=== PATIENT | male | born 1975 | race Asian ===

== ENCOUNTER 2016-12-29 17:18 | Emergency (ER) | payer SELFPAY ==
[~2016-12-29] VITALS: Ht 175.3 cm; Wt 111.6 kg
[2016-12-29 17:34] VITALS: BP 145/82
[2016-12-29] MEDS ORDERED: TETANUS AND DIPHTHERIA TOX/PF 0.5 ML DISP.SYRIN. VAX IM ONE (17:45)
[2016-12-29] MEDS ORDERED: NEOMY/BACITR/POLYMYXIN OINT PACKET. TP ONE (18:00)
[2016-12-29] MEDS ORDERED: CEPH-264 PO (18:09)
--- NOTE | 2016-12-29 18:09 | PHYS DOC ---
Past Medical History Past Medical History: No Pertinent History Past Surgical History: No Surgical History Alcohol Use: Occasionally Drug Use: None Adult General Chief Complaint Chief Complaint: LACERATION/AVULSION HPI HPI Patient is a 41 year old male presents to the ED complaining of hand laceration 1 day. Patient states yesterday evening he was cleaning his fish and cut his second, fourth, and fifth finger with a hook. Describes the pain as sharp. Rates the pain as 6/10. Denies fever, headache, decreased ROM, headache, nausea/vomiting, or foreign body. Review of Systems Review of Systems Constitutional: Denies fever or chills [] Eyes: Denies change in visual acuity, redness, or eye pain [] HENT: Denies nasal congestion or sore throat [] Respiratory: Denies cough or shortness of breath [] Cardiovascular: No additional information not addressed in HPI [] GI: Denies abdominal pain, nausea, vomiting, bloody stools or diarrhea [] : Denies dysuria or hematuria [] Musculoskeletal: Denies back pain or joint pain [] Integument: Denies rash or skin lesions. Complains of finger lacerations. [] Neurologic: Denies headache, focal weakness or sensory changes [] Endocrine: Denies polyuria or polydipsia [] Current Medications Current Medications Current Medications Medications (Trade) Dose Ordered Sig/Emily Start Time Stop Time Status Last Admin Dose Admin Neomycin/ Polymyxin/ Bacitracin (Triple Antibiotic Ointment) 1 pkt 1X ONCE 12/29/16 18:00 12/29/16 18:02 DC 12/29/16 18:00 1 PKT Tetanus/ Diphtheria Toxoids (Tenivac Syringe) 0.5 ml ONCE ONCE 12/29/16 17:45 12/29/16 17:46 DC 12/29/16 18:27 0.5 ML Allergies Allergies Allergies Coded Allergies Type Severity Reaction Last Updated Verified No Known Drug Allergies 12/29/16 No Physical Exam Physical Exam Constitutional: Well developed, well nourished, no acute distress, non-toxic appearance. [] HENT: Normocephalic, atraumatic, bilateral external ears normal, oropharynx moist, no oral exudates, nose normal. [] Eyes: PERRLA, EOMI, conjunctiva normal, no discharge. [] Neck: Normal range of motion, no tenderness, supple, no stridor. [] Cardiovascular:Heart rate regular rhythm, no murmur [] Lungs & Thorax: Bilateral breath sounds clear to auscultation [] Abdomen: Bowel sounds normal, soft, no tenderness, no masses, no pulsatile masses. [] Skin: Warm, dry, no erythema, no rash. [] Back: No tenderness, no CVA tenderness. [] Extremities: 1 CM SUPERFICIAL LACERATIONS TO 2, 4, 5 FINGERS. NO TENDON LACERATION. No tenderness, no cyanosis, no clubbing, ROM intact, no edema. [] Neurologic: Alert and oriented X 3, normal motor function, normal sensory function, no focal deficits noted. [] Psychologic: Affect normal, judgement normal, mood normal. [] Current Patient Data Vital Signs Vital Signs Date Time Temp Pulse Resp B/P (MAP) Pulse Ox O2 Delivery O2 Flow Rate FiO2 12/29/16 17:34 98.2 99 16 97 Room Air 98.2 EKG EKG [] Radiology/Procedures Radiology/Procedures [] Course & Med Decision Making Course & Med Decision Making Pertinent Labs and Imaging studies reviewed. (See chart for details) []Wounds copiously irrigated with normal saline, cleaned and dressed. Patient outside the closure window. Lacerations closed and approximated with Steri- Strips. Antibiotic cream applied. Will send out on outpatient oral Keflex. Discussed wound treatment. Discussed follow-up for wound reevaluation in 3 days. Provided contact information/education. Discussed reasons to return to the ED. Patient understands and agrees with plan. Dragon Disclaimer Dragon Disclaimer This electronic medical record was generated, in whole or in part, using a voice recognition dictation system. Departure Departure Impression: Primary Impression: Finger laceration Disposition: 01 HOME, SELF-CARE Condition: IMPROVED Referrals: NO PCP (PCP) NAMITA ZAMBRANO MD Patient Instructions: Laceration Care, Adult Scripts Cephalexin (KEFLEX) 500 Mg Capsule 1 CAP PO TID, #21 CAP Prov: ADELAIDE COX 12/29/16 ADELAIDE COX Dec 29, 2016 18:09
== END 2016-12-29 18:32 | disposition home or self-care (01) ==
LOC: ER 17:18
DX: S61.210A Laceration without foreign body of right index finger without damage to nail, initial encounter (principal); S61.214A Laceration without foreign body of right ring finger without damage to nail, initial encounter; S61.216A Laceration without foreign body of right little finger without damage to nail, initial encounter; W56.59XA Other contact with other fish, initial encounter; Y93.89 Activity, other specified; Y92.89 Other specified places as the place of occurrence of the external cause; Y99.8 Other external cause status
CPT/HCPCS: 90471; 90714; 99283-25

== ENCOUNTER 2019-10-12 16:37 | Emergency (ER) | payer OTHER ==
[~2019-10-12] VITALS: Ht 175.3 cm; Wt 101.0 kg
[~2019-10-12 16:37] MED LIST: CEPH-264 PO
[2019-10-12 19:28] VITALS: BP 117/66
[2019-10-12] MEDS ORDERED: PRED20TA PO (19:42)
--- NOTE | 2019-10-12 19:43 | PHYS DOC ---
Past Medical History Past Medical History: No Pertinent History Past Surgical History: No Surgical History Smoking Status: Never Smoker Alcohol Use: None Drug Use: None General Adult EDM: Chief Complaint: EYE PROBLEMS HPI: HPI: Patient is a 44 year old male who presents to the emergency department with complaints of redness, itching, and swelling to both of his eyelids that began today after he worked in his yard yesterday. Patient denies any drainage, tearing, or decreased vision of his eyes. He denies any new medications, detergents, or foods. Patient states that he thinks he was exposed to poison del yesterday while working in his yard. He denies any fever, cough, shortness of breath, nausea, vomiting, diarrhea, abdominal pain, or swelling. He currently denies any pain. Review of Systems: Review of Systems: Complete review of systems is negative unless otherwise documented in the HPI. Heart Score: Risk Factors: Risk Factors: DM, Current or recent (<one month) smoker, HTN, HLP, family history of CAD, obesity. Risk Scores: Score 0 - 3: 2.5% MACE over next 6 weeks - Discharge Home Score 4 - 6: 20.3% MACE over next 6 weeks - Admit for Clinical Observation Score 7 - 10: 72.7% MACE over next 6 weeks - Early Invasive Strategies Allergies: Allergies: Allergies Coded Allergies Type Severity Reaction Last Updated Verified No Known Drug Allergies 12/29/16 No Physical Exam: PE: Constitutional: Well developed, well nourished, no acute distress, non-toxic appearance. [] HENT: Normocephalic, atraumatic, bilateral external ears normal, nose normal. [] Eyes: PERRLA, EOMI, conjunctiva normal, no discharge; erythema and edema of upper and lower eyelids bilaterally consistent with contact dermatitis. [] Neck: Normal range of motion, no stridor. [] Cardiovascular:Heart rate regular rhythm Lungs & Thorax: Respirations even and unlabored, no retractions, no respiratory distress Skin: Warm, dry, see eye exam Extremities: No cyanosis, ROM intact, no edema. [] Neurologic: Alert and oriented X 3, no focal deficits noted. [] Psychologic: Affect normal, judgement normal, mood normal. [] Current Patient Data: Vital Signs: Vital Signs Date Time Temp Pulse Resp B/P (MAP) Pulse Ox O2 Delivery O2 Flow Rate FiO2 10/12/19 19:28 98.1 56 117/66 (83) 99 Room Air 98.1 EKG: EKG: [] Radiology/Procedures: Radiology/Procedures: [] Course & Med Decision Making: Course & Med Decision Making Pertinent Labs and Imaging studies reviewed. (See chart for details) [] Dragon Disclaimer: Dragon Disclaimer: This electronic medical record was generated, in whole or in part, using a voice recognition dictation system. Departure Departure Impression: Primary Impression: Eyelid dermatitis, allergic/contact Disposition: HOME, SELF-CARE Condition: STABLE Referrals: NO PCP (PCP) Patient Instructions: Contact Dermatitis, [id number] Additional Instructions: Fill the prescription(s) and use as directed. Apply cool, moist washcloths to eyes as needed for comfort. Take Benadryl every 6 hours as needed for itching. Follow-up with your primary care doctor in 1-2 days. Return to the emergency room if your symptoms worsen. Scripts Prednisone (PREDNISONE) 20 Mg Tablet 1 TAB PO UD for 12 Days, #15 TAB 2 tabs by mouth days 1,2,3 then 1.5 tabs by mouth days 4,5,6 then 1 tab by mouth days 7,8,9 then 0.5 tab by mouth day 10,11,12 Prov: SENG ROLON APRN 10/12/19 Justicifation of Admission Dx: Justifications for Admission: Justification of Admission Dx: N/A SENG ROLON APRN Oct 12, 2019 19:43
== END 2019-10-12 19:52 | disposition home or self-care (01) ==
LOC: ER 16:37
DX: H01.9 Unspecified inflammation of eyelid (principal)
CPT/HCPCS: 99283

== ENCOUNTER 2020-01-02 14:16 | Emergency (ER) | payer OTHER ==
[~2020-01-02] VITALS: Ht 175.3 cm; Wt 101.8 kg
[~2020-01-02 14:16] MED LIST changes: +PRED20TA PO
[2020-01-02 14:20] VITALS: BP 129/72
--- NOTE | 2020-01-02 14:35 | PHYS DOC ---
Past Medical History Past Medical History: No Pertinent History Past Surgical History: No Surgical History Smoking Status: Never Smoker Alcohol Use: None Drug Use: None General Adult EDM: Chief Complaint: LOWER EXT PAIN HPI: HPI: Patient is a 44 year old male patient who presents to the ED today complaining of 8 out of 10 sharp intermittent left groin/hip pain that began on Saturday this week after he twisted wrong at work. Patient states he is employed at [employer] and is constantly lifting heavy items. He states while lifting a 30 pound box he twisted wrong and developed the pain. He was seen at work and was put on some medicine. He states the medicine is not helping. He does not remember the name of the medicine. He states the pain is worse on weightbearing. Review of Systems: Review of Systems: Constitutional: Denies fever or chills. [] : Denies dysuria. [] Musculoskeletal: Reports left hip pain/left groin pain Integument: Denies rash. [] Neurologic: Denies headache, focal weakness or sensory changes. [] Psychiatric: Denies depression or anxiety. [] Heart Score: Risk Factors: Risk Factors: DM, Current or recent (<one month) smoker, HTN, HLP, family history of CAD, obesity. Risk Scores: Score 0 - 3: 2.5% MACE over next 6 weeks - Discharge Home Score 4 - 6: 20.3% MACE over next 6 weeks - Admit for Clinical Observation Score 7 - 10: 72.7% MACE over next 6 weeks - Early Invasive Strategies Allergies: Allergies: Allergies Coded Allergies Type Severity Reaction Last Updated Verified No Known Drug Allergies 12/29/16 No Physical Exam: PE: Constitutional: Well developed, well nourished, no acute distress, non-toxic appearance. [] Skin: Warm, dry, no erythema, no rash. [] Back: No tenderness, no CVA tenderness. [] Extremities: Left hip/left groin with no obvious deformity, left lower extremity with no obvious deformity. Full range of motion to the left lower extremity, adequate internal rotation and external rotation of the left hip. Adequate flexion and extension of the left lower extremity. +2 left pedal pulse. Cap refill less than 2 seconds to left lower extremity. Neurologic: Alert and oriented X 3, normal motor function, normal sensory function, no focal deficits noted. [] Psychologic: Affect normal, judgement normal, mood normal. [] EKG: EKG: [] Radiology/Procedures: Radiology/Procedures: []PROCEDURE: HIP LEFT 2V WITH PELVIS Pelvis and two-view left hip: Reason for examination: Pain after twisting hip at work on Saturday. Single view the pelvis shows no gross fracture. No abnormality seen at the sacrum or sacroiliac joints. Proximal femur appear to be intact and hip joints are maintained. 2 views of the left hip show no evidence of fracture or dislocation. The bone density is normal. No abnormal periosteal reaction is seen. IMPRESSION: No acute bony abnormality in the pelvis or left hip. Electronically signed by: Arlette Krishnamurthy MD (01/02/2020 2:48 PM) [facility] DICTATED and SIGNED BY: ARLETTE KRISHNAMURTHY MD DATE: 01/02/20 1448 Course & Med Decision Making: Course & Med Decision Making Pertinent Labs and Imaging studies reviewed. (See chart for details) This is a 44-year-old male patient presenting to the ED today with left groin pain that began 4 days ago after he twisted wrong at work. Left hip x-rays including pelvis are negative for any acute findings. Discharged on cyclobenzaprine, diclofenac and Medrol Dosepak. Provided orthopedic doctor for follow-up. Michael Disclaimer: Michael Disclaimer: This electronic medical record was generated, in whole or in part, using a voice recognition dictation system. Departure Departure Impression: Primary Impression: Sacroiliac strain Qualified Codes: S39.012A - Strain of muscle, fascia and tendon of lower back, initial encounter Disposition: 01 DC HOME SELF CARE/HOMELESS Condition: STABLE Referrals: NO PCP (PCP) JOSEPH PRESTON MD Follow-up in 1 to 2 weeks Patient Instructions: Joint Sprain Additional Instructions: You were evaluated in the emergency room for left groin pain, your left hip x- rays including pelvic x-rays were negative for any acute findings. Try to ice and elevate the affected area. Follow-up with orthopedic doctor provided or y our Work[employer]. doctor in 1 to 2 weeks. Take the prescribed medications as ordered. Scripts Diclofenac Potassium (DICLOFENAC POTASSIUM) 50 Mg Tablet 1 TAB PO BID, #20 TAB 0 Refills Prov: SYLWIA KOTHARI APRN 01/02/20 Prednisone (PREDNISONE) 50 Mg Tablet 1 TAB PO DAILY, #5 TAB Prov: SYLWIA KOTHARI APRN 01/02/20 Cyclobenzaprine Hcl (CYCLOBENZAPRINE HCL) 10 Mg Tablet 1 TAB PO TID, #30 TAB Prov: SYLWIA KOTHARI APRN 01/02/20 SYLWIA KOTHARI APRN Jan 02, 2020 14:35
--- NOTE | 2020-01-02 14:52 | RAD ---
Pelvis and two-view left hip: Reason for examination: Pain after twisting hip at work on Saturday. Single view the pelvis shows no gross fracture. No abnormality seen at the sacrum or sacroiliac joints. Proximal femur appear to be intact and hip joints are maintained. 2 views of the left hip show no evidence of fracture or dislocation. The bone density is normal. No abnormal periosteal reaction is seen. IMPRESSION: No acute bony abnormality in the pelvis or left hip. Electronically signed by: Arlette Jacob MD (01/02/2020 2:48 PM) [facility]IN
[2020-01-02] MEDS ORDERED: DICL50TA2 PO (14:59)
[2020-01-02] MEDS ORDERED: PRED50TA PO (14:59)
[2020-01-02] MEDS ORDERED: CYCL10TA2 PO (14:59)
== END 2020-01-02 15:07 | disposition home or self-care (01) ==
LOC: ER 14:16
DX: S39.012A Strain of muscle, fascia and tendon of lower back, initial encounter (principal); X50.1XXA Overexertion from prolonged static or awkward postures, initial encounter; Y93.89 Activity, other specified; Y92.89 Other specified places as the place of occurrence of the external cause; Y99.8 Other external cause status
CPT/HCPCS: 73502; 99283